=== PATIENT | male | born 1955 | race Caucasian/White ===

== ENCOUNTER 2019-08-12 08:26 | Emergency (ER) | payer BC ==
--- NOTE | 2019-08-12 08:56 | EDM.PDOC ---
ED HPI GENERAL MEDICAL PROBLEM - General Chief Complaint: Lower Extremity Injury/Pain Stated Complaint: INJURED LEFT FOOT AND LEG Time Seen by Provider: 08/12/19 08:40 Source of Information: Reports: Patient History Limitations: Reports: No Limitations - History of Present Illness INITIAL COMMENTS - FREE TEXT/NARRATIVE: 64-year-old male with a lower left leg injury. He slipped on the ice 4 days ago , turning his ankle and sustaining some pain in his calf. He has been limping around for 4 days thinking it would get better but it is not improving so he came in to be checked. No other injury. Onset: Sudden Duration: Day(s): Quality: Reports: Sharp (Especially with weightbearing), Stabbing Worsens with: Reports: Other (Weightbearing), Movement Left Middle Leg Pain Score (Numeric/FACES): 1 - Related Data Allergies Allergy/AdvReac Type Severity Reaction Status Date / Time No Known Allergies Allergy Verified 08/12/19 08:45 Home Meds: Home Meds NK [No Known Home Meds] 08/12/19 [History] Review of Systems - Review of Systems Review Of Systems: See Below Constitutional: Denies: Fever Ears: Reports: No Symptoms Respiratory: Denies: Shortness of Breath Cardiovascular: Denies: Chest Pain Skin: Reports: Bruising (A small amount of bruising around the ankle) Neurological: Denies: Paresthesia ED EXAM, GENERAL - Physical Exam Exam: See Below Exam Limited By: No Limitations General Appearance: Alert, No Apparent Distress Respiratory/Chest: No Respiratory Distress Cardiovascular: Regular Rate, Rhythm, Tachycardia Extremities: Other (Exam is otherwise limited to the lower extremities. He has a small amount of edema around the left ankle with some bruising compared to the right. On palpation is very tender over the proximal fibula on the left side.) Course - Vital Signs Last Recorded V/S: Last Vital Signs Temp 96.9 F 08/12/19 09:02 Pulse 96 08/12/19 09:05 Resp BP 213/95 H 08/12/19 09:05 Pulse Ox 96 08/12/19 09:05 - Orders/Labs/Meds Orders: Active Orders 24 hr Category Date Time Status DME for Discharge [COMM] Stat Oth 08/12/19 09:21 Ordered - Re-Assessments/Exams Free Text/Narrative Re-Assessment/Exam: 08/12/19 08:58 A tib-fib x-ray was obtained. 08/12/19 09:13 X-ray confirmed a spiral fracture, nondisplaced of the proximal fibula. Orthopedics was consulted for activity recommendations and follow-up. 08/12/19 09:16 Patient will be rechecked with orthopedics on September 02 at 3:15 PM. He can use crutches to assist with weightbearing and increase activity as tolerated. Departure - Departure Time of Disposition: 09:31 Disposition: Home, Self-Care 01 Clinical Impression: Fracture, fibula, proximal Qualifiers: Encounter type: initial encounter Fracture type: closed Fracture morphology: other fracture Laterality: left Qualified Code(s): S82.832A - Other fracture of upper and lower end of left fibula, initial encounter for closed fracture - Discharge Information Instructions: Tibial and Fibular Fractures Referrals: PCP,None [Primary Care Provider] - Forms: ED Department Discharge Care Plan Goals: Use crutches for the next several weeks to assist with ambulation and increase activity as tolerated. Recheck with Dr. Perez at the orthopedic clinic on September 02 at 3:15 in the afternoon. Return sooner if worsening, you develop other concerns, or feel you are not healing satisfactorily. Sepsis Event Note - Focused Exam Vital Signs: Vital Signs Temp Pulse BP Pulse Ox 08/12/19 09:05 96 213/95 H 96 08/12/19 09:02 96.9 F 113 H 221/128 H 96 08/12/19 08:43 235/112 H 08/12/19 08:40 96.9 F 113 H 221/128 H 96 Date Exam was Performed: 08/12/19 Time Exam was Performed: 09:49 - My Orders Last 24 Hours: My Active Orders 08/12/19 09:21 DME for Discharge [COMM] Stat - Assessment/Plan Last 24 Hours: My Active Orders 08/12/19 09:21 DME for Discharge [COMM] Stat
--- NOTE | 2019-08-12 09:24 | CR ---
Tibia Fibula Lt CLINICAL HISTORY: Injury FINDINGS: Patient has a minimally displaced oblique fracture of the proximal fibula. There is diffuse atherosclerotic vascular calcification. IMPRESSION: Minimally displaced acute oblique fracture of the proximal fibula.
== END 2019-08-12 09:31 | disposition home or self-care (01) ==
LOC: JP.ED 08:26
DX: S82.832A Other fracture of upper and lower end of left fibula, initial encounter for closed fracture (principal); X50.9XXA Other and unspecified overexertion or strenuous movements or postures, initial encounter
CPT/HCPCS: 73590-26-LT; 73590-LT; 99283-25